=== PATIENT | female | born 1955 | race Caucasian/White ===

== ENCOUNTER 2017-04-29 23:06 | Emergency (ER) | payer OTHER ==
[2017-04-30 00:54] LABS: PLATELET COUNT 300 x10^3mcL (130-400); RED CELL DISTRIBUTION WIDTH 14.1 % (11.5-14.5)
[2017-04-30 00:59] LABS: CALCIUM 9.1 mg/dL (8.5-10.1); CARBON DIOXIDE 30.7 mmol/L (21-32); CHLORIDE SERUM 108 mmol/L (98-107); GFR1 > 60 mL/min; GLUCOSE SERUM 92 mg/dL (74-106); POTASSIUM SERUM 3.8 mmol/L (3.5-5.1); SODIUM SERUM 142 mmol/L (136-145)
[2017-04-30 01:04] LABS: ALBUMIN 3.3 g/dL (3.4-5.0); ALKALINE PHOSPHATASE 135 U/L (46-116); ALT/SGPT 34 U/L (14-59); AST/SGOT 29 U/L (15-37); BILIRUBIN TOTAL 0.5 mg/dL (0.20-1.00); TOTAL PROTEIN, SERUM 7.8 g/dL (6.4-8.2)
[2017-04-30 01:27] VITALS: BP 163/122
== END 2017-04-30 01:27 | disposition home or self-care (01) ==
LOC: ED 23:06
PROVIDERS: Emergency Medicine
DX: R04.0 Epistaxis (principal); I10 Essential (primary) hypertension; R42 Dizziness and giddiness; J31.0 Chronic rhinitis; J45.909 Unspecified asthma, uncomplicated; Z79.1 Long term (current) use of non-steroidal anti-inflammatories (NSAID); Z88.1 Allergy status to other antibiotic agents; Z79.899 Other long term (current) drug therapy
CPT/HCPCS: 36415

== ENCOUNTER 2017-05-02 05:56 | Emergency (ER) | payer OTHER ==
[~2017-05-02] VITALS: Ht 170.2 cm; Wt 149.7 kg
[2017-05-02 08:23] VITALS: BP 159/95
== END 2017-05-02 08:23 | disposition home or self-care (01) ==
LOC: ED 05:56
DX: R04.0 Epistaxis (principal); I10 Essential (primary) hypertension; Z88.0 Allergy status to penicillin; Z88.1 Allergy status to other antibiotic agents

== ENCOUNTER 2017-05-04 13:09 | Emergency (ER) | payer OTHER ==
[2017-05-04 14:40] VITALS: BP 163/101
== END 2017-05-04 14:52 | disposition home or self-care (01) ==
LOC: ED 13:09
DX: R04.0 Epistaxis (principal); I10 Essential (primary) hypertension

== ENCOUNTER 2018-12-24 20:18 | Emergency (ER) | payer OTHER ==
[~2018-12-24] VITALS: Ht 170.2 cm; Wt 147.4 kg
[2018-12-24 20:32] VITALS: BP 152/99; Ht 170.2 cm; Wt 147.4 kg
== END 2018-12-24 21:31 | disposition home or self-care (01) ==
LOC: ED 20:18
DX: S80.11XA Contusion of right lower leg, initial encounter (principal); J45.909 Unspecified asthma, uncomplicated; I10 Essential (primary) hypertension; Z88.0 Allergy status to penicillin; Z88.1 Allergy status to other antibiotic agents; W01.0XXA Fall on same level from slipping, tripping and stumbling without subsequent striking against object, initial encounter; Y93.89 Activity, other specified; Y92.89 Other specified places as the place of occurrence of the external cause; Y99.8 Other external cause status
CPT/HCPCS: J1885

== ENCOUNTER 2019-01-09 11:09 | Inpatient (IN) | payer OTHER ==
[~2019-01-09] VITALS: Ht 168.9 cm; Wt 167.4 kg
--- NOTE | 2019-01-09 11:25 | NUR ---
PT BIB SELF C/C RT KNEE PAIN X 2 WKS S/P FALL STS STILL IN PAIN ALSO STS SOB LAST NIGHT WITH DIZZINESS AWAITING FOR DR MANSOOR RICCI
--- NOTE | 2019-01-09 11:54 | NUR ---
DR RAZO AT BEDSIDE FOR MD RICCI.
--- NOTE | 2019-01-09 12:07 | NUR ---
X-RAY AT BEDSIDE.
[2019-01-09 12:19] LABS: BASOPHIL % 1.2 % (0-2); PLATELET COUNT 318 x10^3mcL (130-400); RED CELL DISTRIBUTION WIDTH 14.2 % (11.5-14.5)
--- NOTE | 2019-01-09 12:19 | NUR ---
PT MEDICATED WITH DILTIAZEM 10 MG SLOV IVP PER ORDERS, PT ON CM. IV SITE PATENT, NO REDNESS OR SWELLING NOTED. PT EDUCATED ON MEDICATIONS PRIOR TO ADMINISTRATION.
[2019-01-09 12:25] LABS: CARBON DIOXIDE 27.3 mmol/L (21-32); CHLORIDE SERUM 105 mmol/L (98-107); CREATININE SERUM 0.9 mg/dL (0.6-1.0); GFR1 > 60 mL/min; GLUCOSE SERUM 121 mg/dL (74-106); POTASSIUM SERUM 3.6 mmol/L (3.5-5.1); SODIUM SERUM 140 mmol/L (136-145)
[2019-01-09 12:30] LABS: ALBUMIN 3.5 g/dL (3.4-5.0); ALKALINE PHOSPHATASE 127 U/L (46-116); ALT/SGPT 28 U/L (14-59); AST/SGOT 22 U/L (15-37); BILIRUBIN TOTAL 0.75 mg/dL (0.20-1.00); CHOLESTEROL 159 mg/dL (<200); CHOLESTEROL/HDL RATIO 2.9; HDL CHOLESTEROL 55 mg/dL (40-60); LIPASE 108 IU/L (73-393); TRIGLYCERIDES 46 mg/dL (<150)
[2019-01-09 12:31] LABS: TOTAL PROTEIN, SERUM 8.3 g/dL (6.4-8.2)
[2019-01-09 12:39] LABS: T3 TOTAL 1.39 ng/mL
--- NOTE | 2019-01-09 12:43 | NUR ---
US AT BEDSIDE
[2019-01-09 12:50] LABS: FREE THYROXINE INDEX 2.7 ug/dL (1.4-4.5); T4(THYROXINE) 8.8 ug/dL (4.7-13.3)
--- NOTE | 2019-01-09 13:26 | NUR ---
SECOND LANGUAGE TUTOR AT BEDSIDE.
--- NOTE | 2019-01-09 13:26 | NUR ---
PT MEDICATED WITH DILTIAZEM 10 MG SLOW IVP PER MD ORDERS, PT ON CM, PTS IV SITE PATENT, WITH NO REDNESS NOTED.
--- NOTE | 2019-01-09 13:59 | NUR ---
LEVOFLOXACIN 500 MG IVPB INFUSING PER MD ORDERS AT 100 ML/HR PER ORDERS, PT ON DRINKING WATER TECHNICIAN, PT EDUCATED ON MEDICATION PRIOR TO ADMINISTRATION.
--- NOTE | 2019-01-09 14:03 | NUR ---
DR KHAN AT BEDSIDE TO GO OVER PLAN OF CARE
--- NOTE | 2019-01-09 15:28 | NUR ---
PT ADMIT TO TELE ROOM 257B GAVE REPORT TO DOUGLAS
[2019-01-09 16:13] LABS: microscopic required? NO
--- NOTE | 2019-01-09 16:14 | NUR ---
TAKEN TO RADIOLOGY FOR CT
--- NOTE | 2019-01-09 16:20 | NUR ---
PT BACK FROM [email or web address] TECH PT COULD NOT TOLERATE AND BROUGHT HER BACK WAS INFORMED
[2019-01-09 16:25] LABS: urine erythrocyte NEGATIVE (NEGATIVE)
--- NOTE | 2019-01-09 16:30 | NUR ---
PT MEDICATED WITH TORADOL SLOW IVP, FLUSHED WITH NO REDNESS OR SWELLING NOTED. PT EDUCATED ON MEDICATION. PT REMAINS ON CM.
--- NOTE | 2019-01-09 17:09 | NUR ---
CT COMPLETE PT TOLERATED WELL
--- NOTE | 2019-01-09 17:59 | NUR ---
PT RELAXED WATCHING TV
--- NOTE | 2019-01-09 18:25 | NUR ---
PLEASE ENTER FULL NAMES OF PROFESSOR COMPUTER SCIENCE/RN Patient data collected by (PROFESSOR COMPUTER SCIENCE):STEVEN PROFESSOR COMPUTER SCIENCE Assessment reviewed and completed by (RN): EMELYN GOMEZ
--- NOTE | 2019-01-09 18:47 | NUR ---
RECEIVED PT FROM ED VIA [facility], CAME IN DUE TO SOB. AAOX4. DENIES HEADACHE/DIZZINESS. NO SOB NOTED, LUNG SOUNDS CTA. W/ DRY COUGH. EVEN AND UNLABORED BREATHING. DENIES CHEST PAIN/PRESSURE, AFLUTTER/AFIB ON THE MONITOR, HR AT 104. W/ +3 EDEMA ON BLE. WEAK PEDAL PULSES NOTED. DENIES ABDOMINAL DISCOMFORT. BOWEL SOUNDS ACTIVE. VOIDS. IV SITE ON THE LAC IS PATENT AND INTACT. SIDE RAILS UPX2. CALL LIGHT ON REACH. PRIMARY NURSE JOSE AT BEDSIDE FOR CONTINUITY OF CARE
[2019-01-09 18:49] VITALS: BP 148/115
[2019-01-09 18:54] VITALS: Ht 168.9 cm; Wt 167.4 kg
[2019-01-09] MEDS ORDERED: APAP500 MG PO (18:57)
[2019-01-09] MEDS ORDERED: CLARITIN10 MG PO (18:57)
[2019-01-09] MEDS ORDERED: LEVOTHYROXINE0.05 M2 PO (18:57)
--- NOTE | 2019-01-09 19:00 | NUR ---
NO ACUTE CHANGES AT THIS TIME. NO ACUTE RESP DISTRESS OR SOB NOTED., REMAINS OF 2L NC/ TOLERATING WELL. DENIES ANY CP OR PRESSURE.WILL ENODRSE TO INCOMING R.N.
--- NOTE | 2019-01-09 19:55 | NUR ---
RECEIVED PT FROM PREVIOUS SHIFT NURSE. PT AOX4. PT DENIES CP/PRESSURE AT THIS TIME. RR EVEN AND UNLABORED, DENIES SOB ON 2L NC. IV TO LAC, INTACT AND PATENT. BED IN LOWEST POSITION. CALL LIGHT WITHIN REACH. WILL CONTINUE TO MONITOR.
[2019-01-09 20:42] VITALS: BP 142/95
--- NOTE | 2019-01-10 03:00 | NUR ---
PT RESTING IN BED. RR EVEN AND UNLABORED. NO ACUTE DISTRESS NOTED. CALL LIGHT WITHIN REACH. BED IN LOWEST POSITION. WILL CONTINUE TO MONITOR.
[2019-01-10 06:03] VITALS: BP 144/85
[2019-01-10 06:18] LABS: BASOPHIL % 0.5 % (0-2); PLATELET COUNT 296 x10^3mcL (130-400); RED CELL DISTRIBUTION WIDTH 14.1 % (11.5-14.5)
[2019-01-10 06:31] LABS: BILIRUBIN TOTAL 0.93 mg/dL (0.20-1.00); CARBON DIOXIDE 28.6 mmol/L (21-32); MAGNESIUM 2.2 mg/dL (1.8-2.4); POTASSIUM SERUM 3.8 mmol/L (3.5-5.1); TOTAL PROTEIN, SERUM 7.8 g/dL (6.4-8.2)
[2019-01-10 06:33] LABS: ALBUMIN 3.3 g/dL (3.4-5.0)
--- NOTE | 2019-01-10 07:29 | NUR ---
ASSUMED CARE OF PATIENT. PATIENT SEEN SLEEPING IN ROOM WITH UNLABORED RESPIRATIONS. ON TELE MONITOR 30, S1, S2 SOUNDS HEARD. PULSES PALPABLE WITH BLITERAL LOWER EXTREMITY EDEMA +1. LUNGS CLEAR TO ROOM AIR, OCCSAIONALLY USING 2L O2 VIA NC. BOWEL SOUNDS PRESENT IN ALL 4 QUADRANTS. VOIDING WITH NO ISSUE. AMBULATORY WITH CANE, GENERALIZED WEAKNESS. SKIN WITHIN NORMAL LIMITS, CLEAN, DRY, ITNACT. NO COMPLAINTS OF PAIN AT THIS MOMENT. IV ON LAC PATENT AND INFUSING. BED LOCKED AND IN LOWEST POSITION. NONSKID SOCKS IN PLACE. CALL LIGHT WITHIN REACH. WILL CONTINUE TO MONITOR.
--- NOTE | 2019-01-10 08:30 | NUR ---
PATIENT COMPLAINING OF HEADACHE, PRN TYLENOL PROVIDED.
[2019-01-10 09:19] VITALS: BP 149/95
[2019-01-10 09:23] VITALS: BP 142/103
--- NOTE | 2019-01-10 10:16 | NUR ---
PATIENT SEEN RESTING IN ROOM WITH UNLABORED RESPIRATIONS. CONTINUING ON 2L O2 VIA NC.
--- NOTE | 2019-01-10 10:44 | NUR ---
I HAVE REVIEWED THE DATA COLLECTION BY JASON GARCIA (NAME):ADDIS GIRON ENTERED ON (DATE/TIME):01/10/19 3455 I CONCUR WITH THE DATA AND ANY EXCEPTIONS OR COMMENTS ARE LISTED BELOW:
--- NOTE | 2019-01-10 11:19 | NUR ---
DISCHARGE INSTRUCTIONS WELL MED RECONCILIATION PROVIDED. AWAITING PER PATIENT REQUEST PRIOR TO DISCHARGE.
--- NOTE | 2019-01-10 16:15 | NUR ---
PATIENT SEEN RESTING IN BED WITH UNLABORED RESPIRATIONS. FAMILY SEEN AT BEDSIDE. NO NEW ISSUES.
--- NOTE | 2019-01-10 16:56 | NUR ---
ORDER FOR ECHO, DISCUSSING WITH PATIENT REGARDING POSSIBLE ECHO.
--- NOTE | 2019-01-10 17:01 | NUR ---
CAME TO SEE PT.ADVISED PT TO STAY FOR THE NIGHT. WILL INCREASE HER METOPROLOL TO Q 8.START HER ON ELIQUIS.ADVISE HER NOT TO DRINK COFFEE AND LOSE WT.PT AGREED TO STAY 1 MORE NIGHT.
[2019-01-10 17:37] VITALS: BP 129/85
--- NOTE | 2019-01-10 18:11 | NUR ---
METOPROLOL IVP ADMINISTERED OVER 5 MINUTES. TELE TECHS NOTIFIED TO WATCH FOR ANY ADVERSE EFFECTS.
[2019-01-10 18:34] VITALS: BP 139/86
--- NOTE | 2019-01-10 18:48 | NUR ---
PATIENT SEEN RESTING IN ROOM. VSS AFTER METOPROLOL IVP. NO ADVERSE EFFECTS NOTED. NO COMPLAINTS OF ANY CP OR DISCOMFORT. WILL ENDORSE TO ONCOMING SHIFT NURSE.
--- NOTE | 2019-01-10 19:04 | NUR ---
PT RECIEVED FROM THE DAY SHIFT RN. PT IS ALERT AND ORIENTED X4, CALM AND COOPERATIVE WITH CARE. PT STATES NECK PAIN THAT FEELS DULL AND ACHING. WILL MEDICATE WITH PRN PAIN MEDICATION. WILL CONTINUE TO MONITOR.
[2019-01-10 20:35] VITALS: BP 133/85
--- NOTE | 2019-01-10 20:48 | NUR ---
PT COMPLAINED OF NECK PAIN STATES PAIN IS DULL AND ACHING AND STATED 5/10 PAIN. TYLENOL 650 MG GIVEN. NO FURTHER COMPLAINTS AT THIS TIME. SAFETY AND COMFORT MEASURES MAINTAINED, BED IN LOWEST POSITION, CALL LIGHT WITHIN REACH, WILL CONTINUE TO MONITOR.
--- NOTE | 2019-01-11 01:10 | NUR ---
PT IS RESTING IN BED WITH EYES CLOSED AT THIS TIME. NO ACUTE DISTRESS NOTED. PT HAS BEEN CALM AND COOPERATIVE WITH CARE. SAFETY AND COMFORT MEASURES MAINTAINED, BED IN LOWEST POSITION, CALL LIGHT WITHIN REACH, WILL CONTINUE TO MONITOR AT THIS TIME.
--- NOTE | 2019-01-11 02:22 | NUR ---
PT IS RESTING IN BED WITH EYES CLOSED. NO ACUTE DISTRESS NOTED. SAFETY AND COMFORT MEASURES MAINTAINED, BED IN LOWEST POSITION, CALL LIGHT WITHIN REACH, WILL CONTINUE TO MONITOR AT THIS TIME.
--- NOTE | 2019-01-11 05:29 | NUR ---
PT SLEPT IN LONG INTERVALS THROUGHOUT THE SHIFT. PT HAS BEEN ALERT AND ORIENTED X4, CALM AND COOPERATIVE WITH CARE. NO ACUTE DISTRESS NOTED. NO COMPLAINT OF PAIN AT THIS TIME. SAFETY AND COMFORT MEASURES MAINTAINED, BED IN LOWEST POSITION, CALL LIGHT WITHIN REACH, WILL CONTINUE TO MONITOR AT THIS TIME.
[2019-01-11 06:23] VITALS: BP 114/75
--- NOTE | 2019-01-11 07:31 | NUR ---
ASSUMED CARE OF PATIENT. ALERT AND ORIENTED X4. NO COMPLAINTS OF PAIN OR DISCOMFORT. TELE MONITOR 30, IN AFIB. PULSES PALPABLE BILATERALY. BLE +2. NO ADVERSE EFFECTS NOTED FROM ELIQUIS. LUNG SOUNDS CLEAR TO ROOM AIR. UTILIZES 2L VIA NC PRN. ABDOMEN LARGE AND ROUNDED, NO PAIN WITH PALPATION, BOWEL SOUNDS PRESENT IN ALL 4 QUADRANTS. VOIDING WITH NO ISSUE, BRP. GENERALIZED WEAKNESS, AMBULATES WITH CANE. SKIN CLEAN, DRY, INTACT. IV ON LAC SALINE LOCKED. BED LOCKED AND IN LOWEST POSITION. NONSKID SOCKS IN PLACE. CALL LIGHT WITHIN REACH. WILL CONTINUE TO MONITOR.
--- NOTE | 2019-01-11 07:59 | NUR ---
I HAVE REVIEWED THE DATA COLLECTION BY JASON GARCIA (NAME):ADDIS GIRON RN ENTERED ON (DATE/TIME):01/11/19 @ 0759 AM I CONCUR WITH THE DATA AND ANY EXCEPTIONS OR COMMENTS ARE LISTED BELOW:
--- NOTE | 2019-01-11 09:19 | NUR ---
PATIENT COMPLAINING OF HEADACHE, PRN TYLENOL PROVIDED.
[2019-01-11 09:29] VITALS: BP 143/89
[2019-01-11 10:02] VITALS: BP 143/89
--- NOTE | 2019-01-11 10:59 | NUR ---
PATIENT PROVIDED WITH UPDATED DISCHARGE INSTRUCTIONS AND MEDICATION RECONCILIATION. WAITING FOR SISTER FOR AUDIO/VISUAL MANAGER AND DISCHARGE.
--- NOTE | 2019-01-11 12:06 | NUR ---
PATIENT PREPARING TO LEAVE UNIT WITH SISTER. IV REMOVED, CATHTER INTACT. TELE MONITOR REMOVED.
--- NOTE | 2019-01-11 12:24 | NUR ---
PATIENT LEFT UNIT WITH WHEELCHAIR ACCOMPANIED BY THIS RN AND SISTER. ALL BELONGINGS LEFT WITH PATIENT. PATIENT HAD NO COMPLAINTS OF PAIN AND WAS NOT IN ANY APPARENT STATE OF DISTRESS OR DISCOMFORT.
== END 2019-01-11 12:17 | disposition home or self-care (01) | DRG 308 ==
LOC: ED 11:09 → DU 14:38 → EDBEDREQ 14:39 → DU 18:47
PROVIDERS: Specialist; ADMIT Internal Medicine Pulmonary Disease
DX: I48.0 Paroxysmal atrial fibrillation (principal); J18.9 Pneumonia, unspecified organism; Z68.43 Body mass index [BMI] 50.0-59.9, adult; J44.0 Chronic obstructive pulmonary disease with (acute) lower respiratory infection; E66.01 Morbid (severe) obesity due to excess calories; Z71.3 Dietary counseling and surveillance; Z88.0 Allergy status to penicillin; Z88.8 Allergy status to other drugs, medicaments and biological substances; I10 Essential (primary) hypertension; J45.909 Unspecified asthma, uncomplicated; Z86.73 Personal history of transient ischemic attack (TIA), and cerebral infarction without residual deficits; I89.0 Lymphedema, not elsewhere classified; J20.9 Acute bronchitis, unspecified; E03.9 Hypothyroidism, unspecified
CPT/HCPCS: 83880; 84439; 85378; J1885; J1956; J3490; Q0092; Q9967

== ENCOUNTER 2019-03-16 16:40 | Emergency (ER) | payer OTHER ==
[~2019-03-16] VITALS: Ht 167.6 cm; Wt 158.8 kg
[~2019-03-16 16:40] MED LIST: APAP500 MG PO; CLARITIN10 MG PO; LEVOTHYROXINE0.05 M2 PO
[2019-03-16 16:46] VITALS: Ht 167.6 cm; Wt 158.8 kg
[2019-03-16 19:41] VITALS: BP 151/98
== END 2019-03-16 19:41 | disposition home or self-care (01) ==
LOC: ED 16:40
DX: R04.0 Epistaxis (principal); J45.909 Unspecified asthma, uncomplicated; I10 Essential (primary) hypertension; I48.91 Unspecified atrial fibrillation; Z86.73 Personal history of transient ischemic attack (TIA), and cerebral infarction without residual deficits; Z88.0 Allergy status to penicillin; Z88.1 Allergy status to other antibiotic agents

== ENCOUNTER 2020-02-19 21:05 | Inpatient (IN) | payer OTHER ==
[~2020-02-19] VITALS: Ht 167.6 cm; Wt 151.0 kg
[2020-02-19 21:07] VITALS: Ht 167.6 cm; Wt 151.0 kg
[2020-02-19 23:59] LABS: BASOPHIL % 0.6 % (0-2); CALCIUM 8.7 mg/dL (8.5-10.1); CARBON DIOXIDE 28.4 mmol/L (21-32); PLATELET COUNT 260 x10^3mcL (130-400); POTASSIUM SERUM 3.2 mmol/L (3.5-5.1); RED CELL DISTRIBUTION WIDTH 13.8 % (11.5-14.5)
[2020-02-20] VITALS (8 sets, daily range): BP systolic 131–160; BP diastolic 56–111
[2020-02-20 00:05] LABS: ALBUMIN 3.4 g/dL (3.4-5.0); BILIRUBIN TOTAL 0.9 mg/dL (0.20-1.00); TOTAL PROTEIN, SERUM 7.8 g/dL (6.4-8.2)
[2020-02-20 00:43] LABS: UA SPECIFIC GRAVITY 1.025 (1.005-1.035); microscopic required? YES; urine erythrocyte NEGATIVE (NEGATIVE)
[2020-02-21 05:36] VITALS: BP 151/69
[2020-02-21 05:55] VITALS: BP 149/93
[2020-02-21 06:35] LABS: BASOPHIL % 0.4 % (0-2); PLATELET COUNT 236 x10^3mcL (130-400); RED CELL DISTRIBUTION WIDTH 14.1 % (11.5-14.5)
[2020-02-21 06:51] LABS: CARBON DIOXIDE 25.3 mmol/L (21-32); POTASSIUM SERUM 3.3 mmol/L (3.5-5.1)
[2020-02-21 08:30] VITALS: BP 170/106
[2020-02-21 14:01] VITALS: BP 145/84
[2020-02-21 17:14] VITALS: BP 130/78
[2020-02-21 20:35] VITALS: BP 134/84
[2020-02-22 06:23] VITALS: BP 158/92
[2020-02-22 09:00] VITALS: BP 152/92
[2020-02-22 11:49] VITALS: BP 152/92
[2020-02-22 12:01] VITALS: BP 152/92
== END 2020-02-22 13:30 | disposition home or self-care (01) | DRG 690 ==
LOC: ED 21:05 → MU 02-20 01:47
PROVIDERS: Emergency Medicine; Internal Medicine Gastroenterology; ADMIT Internal Medicine
PROC: 0DBG8ZZ Excision of Left Large Intestine, Via Natural or Artificial Opening Endoscopic (ICD-10-PCS; principal; 2020-02-21 08:00)
PROC: 0DBF8ZZ Excision of Right Large Intestine, Via Natural or Artificial Opening Endoscopic (ICD-10-PCS; 2020-02-21 08:00)
DX: N39.0 Urinary tract infection, site not specified (principal); Z68.43 Body mass index [BMI] 50.0-59.9, adult; E86.0 Dehydration; I48.91 Unspecified atrial fibrillation; I10 Essential (primary) hypertension; J45.909 Unspecified asthma, uncomplicated; E66.01 Morbid (severe) obesity due to excess calories; E87.6 Hypokalemia; K59.00 Constipation, unspecified; K63.5 Polyp of colon; D25.9 Leiomyoma of uterus, unspecified; E03.9 Hypothyroidism, unspecified; Z90.49 Acquired absence of other specified parts of digestive tract; Z88.0 Allergy status to penicillin; Z88.1 Allergy status to other antibiotic agents; Z79.01 Long term (current) use of anticoagulants; Z79.899 Other long term (current) drug therapy
CPT/HCPCS: 45378; G0378; J1200; J1610; J1885; J1940; J1956; J2250; J2270; J2310; J2405; J2550; J3010; J3490; J7030; Q0092

== ENCOUNTER → 2020-04-29 | Outpatient (CLI) | payer OTHER | END | disposition home or self-care (01) | LOC: US 15:13 | PROVIDERS: ATTEND Family Medicine | PROC: B54CZZZ Ultrasonography of Left Lower Extremity Veins (ICD-10-PCS; principal; 2020-04-29) | DX: R60.0 Localized edema (principal) ==

== ENCOUNTER → 2020-09-30 | Outpatient (CLI) | payer OTHER | END | disposition home or self-care (01) | LOC: LB 12:35 | DX: S89.92XA Unspecified injury of left lower leg, initial encounter (principal); X58.XXXA Exposure to other specified factors, initial encounter; Y92.9 Unspecified place or not applicable ==